=== PATIENT | female | born 1980 | race Two or more races ===

== ENCOUNTER 2023-12-01 09:35 | Day surgery (SDC) | payer OTHER ==
[2023-12-01] MEDS: FERRIC CARBOXYMALTOSE 750 MG in SODIUM CHLORIDE 250 ML IVPB ONE (10:09)
[2023-12-01 14:30] VITALS: BP 147/81; PULSE 75; RESP 20; TEMP 98
== END 2023-12-01 11:10 | disposition home or self-care (01) ==
LOC: JONCNONCHE 09:35 → J7W 09:58 → JONCNONCHE 11:10
PROVIDERS: ATTEND Student in an Organized Health Care Education/Training Program
PROC: 3E033GC Introduction of Other Therapeutic Substance into Peripheral Vein, Percutaneous Approach (ICD-10-PCS; principal; 2023-12-01)
DX: D50.9 Iron deficiency anemia, unspecified (principal)
CPT/HCPCS: 96365; J1439

== ENCOUNTER 2023-12-08 09:23 | Day surgery (SDC) | payer OTHER ==
[2023-12-08] MEDS: FERRIC CARBOXYMALTOSE 750 MG in SODIUM CHLORIDE 250 ML IVPB ONE (09:32)
[2023-12-08 09:49] VITALS: PULSE 78; RESP 18; TEMP 98.5
[2023-12-08 10:54] VITALS: BP 149/81
== END 2023-12-08 10:55 | disposition home or self-care (01) ==
LOC: J7W 09:23 → JONCNONCHE 09:23
PROVIDERS: ATTEND Student in an Organized Health Care Education/Training Program
PROC: 3E033GC Introduction of Other Therapeutic Substance into Peripheral Vein, Percutaneous Approach (ICD-10-PCS; principal; 2023-12-08)
DX: D50.9 Iron deficiency anemia, unspecified (principal)
CPT/HCPCS: 96365; J1439